=== PATIENT | male | born 1985 | race Caucasian/White ===

== ENCOUNTER 2018-05-23 13:28 | Observation (INO) ==
--- NOTE | 2018-05-23 14:46 | XR ---
EXAM DATE: 05/23/2018 1:51 PM EDT AGE/SEX: 33 years / Male INDICATIONS: . Chest pain. CLINICAL DATA: This is the patient's initial encounter. Patient reports that signs and symptoms have been present for 1 week and indicates a pain score of 0/10. MEDICAL/SURGICAL HISTORY: None. None. COMPARISON: No prior exams available for comparison. FINDINGS: PA and lateral views of the chest demonstrate the lungs to be symmetrically aerated without evidence of mass, infiltrate or effusion. The cardiomediastinal contours are unremarkable. Osseous structures are intact. CONCLUSION: No acute cardiopulmonary disease. Electronically signed by: Ashutosh Fournier MD 05/23/2018 2:45 PM EDT
--- NOTE | 2018-05-23 16:20 | ED ---
HPI General Chief Complaint: Arrhythmia / Palpitations Stated Complaint: Irregular heartbeat/chestpain Time Seen by Provider: 05/23/18 16:06 Source: patient Mode of arrival: ambulatory Limitations: no limitations History of Present Illness HPI narrative: The patient is a 33-year-old male who presents to the emergency department for palpitations with "skipped beats" and occasional chest discomfort. The patient states occasionally he will feel like his heart is skipping a beat, running slightly fast, and associated with substernal chest discomfort described as pressure. He states the pressure is light, nonradiating , and intermittent. The patient denies any associated shortness of breath, nausea, vomiting, or diaphoresis. The patient does have a history of hypertension and diabetes, however, states he was taken off those medications. The patient states his hypertension and diabetes started after he had surgery for diverticulitis. The patient is currently on no medications, denies any tobacco use, history of CAD, significant early family medical history of CAD, and previous LA. Symptoms are moderate. He denies any exertional shortness of breath. He denies any recent hospitalizations, travel, or surgery. The patient denies any history of pulmonary embolism or DVT. MD complaint: Reports "skipped beats" Onset (ago): day(s) Duration: intermittent Severity: moderate Context: Reports occurred during rest Associated symptoms: Reports chest pain Related Data Home Medications Medication Instructions Recorded Confirmed No Known Home Medications 05/23/18 05/23/18 Allergies Allergy/AdvReac Type Severity Reaction Status Date / Time No Known Allergies Allergy Unverified 05/23/18 16:16 Review of Systems ROS: all other systems reviewed are negative [facility] Medical History Medical History Diabetes (Acute) Hypertension (Acute) Surgical History Surgical History H/O abdominal surgery (Acute) Social History Social History Substance History: No History of Abuse Smoking Status: Never smoker How Often Do You Have a Drink Containing Alcohol: Never Recent Travel in [facility] within the Last 8 Weeks: No Recent Out of Country Travel within the Last 8 Weeks: No Exam Narrative Exam Narrative: GENERAL: Awake, alert, pleasant 33-year-old male who appears his stated age and is in no acute respiratory distress. SKIN: Focused skin assessment warm/dry. HEAD: Atraumatic. Normocephalic. EYES: Pupils equal and round. No scleral icterus. No injection or drainage. ENT: No nasal bleeding or discharge. Mucous membranes pink and moist. NECK: Trachea midline. No JVD. CARDIOVASCULAR: Regular, tachycardic with a heart rate of 110. RESPIRATORY: No accessory muscle use. Clear to auscultation. Breath sounds equal bilaterally. GASTROINTESTINAL: Abdomen soft, well-healed midline scar. No guarding or rigidity. MUSCULOSKELETAL: No obvious deformities. No clubbing. No cyanosis. No edema. NEUROLOGICAL: Awake and alert. No obvious cranial nerve deficits. Motor grossly within normal limits. Normal speech. PSYCHIATRIC: Appropriate mood and affect; insight and judgment normal. Course Initial Documented Vital Signs Temperature 98.8 F 05/23/18 13:32 Pulse Rate 110 H 05/23/18 13:32 Respiratory Rate 20 05/23/18 13:32 Blood Pressure 201/111 H 05/23/18 13:32 Pulse Oximetry 99 05/23/18 13:32 Last Documented Vital Signs Temperature 98.8 F 05/23/18 13:32 Pulse Rate 98 H 05/23/18 18:16 Respiratory Rate 16 05/23/18 18:16 Blood Pressure 171/88 H 05/23/18 18:16 Pulse Oximetry 100 05/23/18 18:16 Sign Out Sign Out Data: Patient Sign Out occurred on 05/23/18 at 17:52. Patient's care was discussed, and care was transferred from Leandro Hankins MD to Jaylon Vivas MD. Sign Out Comment: 33-year-old male with occasional skipped beat/ palpitation and mild chest discomfort. Initial troponin and d-dimer pending, patient slightly tachycardic. If d-dimer is positive, CTA. 2 sets of troponin and discharge home. If initial troponin is positive, admission. Last updated by Leandro Hankins MD at 05/23/18 16:51 Medical Decision Making MDM Narrative Medical decision making narrative: IV was established, labs are drawn and sent, and the patient was placed on cardiac telemetry monitoring and continuous pulse oximetry monitoring. EKG was ordered and interpreted. Chest x-ray was obtained. The patient was administered aspirin. D-dimer and TSH were sent to lab. The patient was signed out at 5 PM to the oncoming physician. The d-dimer is less than 0.5, very reassuring finding to exclude PE in this low risk patient. The patient has had PVCs here in the ER associated with chest tightness. At the time of first reassessment the patient experienced a PVC. This was captured on EKG and reviewed with the on-call equipment tech Dr. Maynard. In this scenario the finding is benign. The patient prefers to stay for chest pain center evaluation which is considered reasonable as he has no outpatient follow-up currently for primary care or cardiology. Given his history of diverticulitis with colostomy followed by reanastomosis hypertension hyperlipidemia coronary artery disease in his family and diabetes serial enzymes and nuclear medicine stress test considered reasonable or as considered appropriate by chest pain center providers. Patient is chest pain-free at approximately 6:30 PM as well as the time of the third reassessment at 7:45 PM. Please refer to Dr. Hankins's documentation for additional details. Medical Screen Exam Complete: Yes Emergency Medical Condition: Yes Differential Diagnosis Differential Diagnosis: Differential diagnosis includes acute coronary syndrome , arrhythmia, pulmonary embolism, electrolyte abnormality, dehydration, pericarditis, myocarditis, cardiomyopathy, valvular disorder. Lab Data Result diagrams: 05/23/18 16:25 05/23/18 16:25 Lab Results 05/23/18 05/23/18 05/23/18 Range/Units 16:25 16:25 16:25 WBC 11.7 H (4.0-11.0) th/mm3 RBC 5.27 (4.50-5.90) mil/mm3 Hgb 15.7 (13.0-17.0) gm/dL Hct 45.1 (39.0-51.0) % MCV 85.6 (80.0-100.0) fL MCH 29.9 (27.0-34.0) pg MCHC 34.9 (32.0-36.0) % RDW 13.0 (11.6-17.2) % Plt Count 175 (150-450) th/mm3 MPV 8.7 (7.0-11.0) fL Neut % (Auto) 80.4 H (16.0-70.0) % Lymph % (Auto) 13.9 (9.0-44.0) % [place] % (Auto) 4.5 (0.0-8.0) % Eos % (Auto) 0.7 (0.0-4.0) % Baso % (Auto) 0.5 (0.0-2.0) % Neut # (Auto) 9.4 H (1.8-7.7) th/mm3 Lymph # (Auto) 1.6 (1.0-4.8) th/mm3 [place] # (Auto) 0.5 (0.0-0.9) th/mm3 Eos # (Auto) 0.1 (0.0-0.4) th/mm3 Baso # (Auto) 0.1 (0.0-0.2) th/mm3 WBC Differential . Differential Comment Auto diff final D-Dimer Quant (PE/DVT) Less than 0.19 (0.00-0.50) mg/L FEU Sodium 136 (136-145) meq/L Potassium 4.0 (3.5-5.1) meq/L Chloride 100 (98-107) meq/L Carbon Dioxide 26.7 (21.0-32.0) meq/L Anion Gap 9 (5-15) meq/L BUN 12 (7-18) mg/dL Creatinine 0.87 (0.60-1.30) mg/dL Estimated GFR Greater than 89 (>89) mL/min POC Glucose (68-110) mg/dl Random Glucose 312 H (74-106) mg/dL Calcium 9.5 (8.5-10.1) mg/dL Magnesium (1.5-2.5) mg/dL Total Bilirubin 1.0 (0.2-1.0) mg/dL AST 11 L (15-37) U/L ALT 21 (12-78) U/L Alkaline Phosphatase 90 (45-117) U/L Troponin I Less than 0.02 L (0.02-0.05) ng/mL Total Protein 8.4 H (6.4-8.2) g/dL Albumin 4.2 (3.4-5.0) g/dL TSH (0.358-3.740) uIU/mL 05/23/18 05/23/18 05/23/18 Range/Units 16:25 18:50 19:05 WBC (4.0-11.0) th/mm3 RBC (4.50-5.90) mil/mm3 Hgb (13.0-17.0) gm/dL Hct (39.0-51.0) % MCV (80.0-100.0) fL MCH (27.0-34.0) pg MCHC (32.0-36.0) % RDW (11.6-17.2) % Plt Count (150-450) th/mm3 MPV (7.0-11.0) fL Neut % (Auto) (16.0-70.0) % Lymph % (Auto) (9.0-44.0) % [place] % (Auto) (0.0-8.0) % Eos % (Auto) (0.0-4.0) % Baso % (Auto) (0.0-2.0) % Neut # (Auto) (1.8-7.7) th/mm3 Lymph # (Auto) (1.0-4.8) th/mm3 [place] # (Auto) (0.0-0.9) th/mm3 Eos # (Auto) (0.0-0.4) th/mm3 Baso # (Auto) (0.0-0.2) th/mm3 WBC Differential Differential Comment D-Dimer Quant (PE/DVT) (0.00-0.50) mg/L FEU Sodium (136-145) meq/L Potassium (3.5-5.1) meq/L Chloride (98-107) meq/L Carbon Dioxide (21.0-32.0) meq/L Anion Gap (5-15) meq/L BUN (7-18) mg/dL Creatinine (0.60-1.30) mg/dL Estimated GFR (>89) mL/min POC Glucose 251 H (68-110) mg/dl Random Glucose (74-106) mg/dL Calcium (8.5-10.1) mg/dL Magnesium 2.0 (1.5-2.5) mg/dL Total Bilirubin (0.2-1.0) mg/dL AST (15-37) U/L ALT (12-78) U/L Alkaline Phosphatase (45-117) U/L Troponin I Less than 0.02 L (0.02-0.05) ng/mL Total Protein (6.4-8.2) g/dL Albumin (3.4-5.0) g/dL TSH 2.960 (0.358-3.740) uIU/mL Imaging Data Radiologist's impression: Chest X-Ray 05/23/18 13:51 CONCLUSION: No acute cardiopulmonary disease. Chest X-Ray 05/23/18 18:16 CONCLUSION: The lungs are clear. ECG Data EKG Prior to Arrival: No Attestation: I personally reviewed and interpreted this ECG as follows: Interpretation: EKG reveals sinus tachycardia with a heart rate of 110. Inverted T waves noted in lead V6. Discharge Plan Discharge Disposition Patient Disposition: 30 Still Patient Physicians Team ED Provider: Jaylon Vivas Primary Care Provider: Primary Care Mary Dominique Attending Provider: Jt Garza Discharge Interventions Interventions: Vital Signs Last Done: 05/23/18 13:32 Status ED Status: Admitted Observation Patient
[2018-05-23 16:53] LABS: Baso # (Auto) 0.1 th/mm3 (0.0-0.2); Baso % (Auto) 0.5 % (0.0-2.0); Eos # (Auto) 0.1 th/mm3 (0.0-0.4); Eos % (Auto) 0.7 % (0.0-4.0); Hematocrit 45.1 % (39.0-51.0); Hemoglobin 15.7 gm/dL (13.0-17.0); Lymph # (Auto) 1.6 th/mm3 (1.0-4.8); Lymph % (Auto) 13.9 % (9.0-44.0); Mean Corpuscular HGB Conc 34.9 % (32.0-36.0); Mean Corpuscular Hemoglobin 29.9 pg (27.0-34.0); Mean Corpuscular Volume 85.6 fL (80.0-100.0); Mean Platelet Volume 8.7 fL (7.0-11.0); Mono # (Auto) 0.5 th/mm3 (0.0-0.9); Mono % (Auto) 4.5 % (0.0-8.0); Neut # (Auto) 9.4 th/mm3 (1.8-7.7); Neut % (Auto) 80.4 % (16.0-70.0); Platelet Count 175 th/mm3 (150-450); Red Blood Count 5.27 mil/mm3 (4.50-5.90); White Blood Count 11.7 th/mm3 (4.0-11.0)
[2018-05-23] MEDS ORDERED: Sodium Chlor 0.9% Inj 500 ML IV.SIG SCH (17:00)
[2018-05-23 17:02] LABS: Albumin 4.2 g/dL (3.4-5.0); Anion Gap 9 meq/L (5-15); Aspartate Aminotransferase 11 U/L (15-37); Blood Urea Nitrogen 12 mg/dL (7-18); Calcium 9.5 mg/dL (8.5-10.1); Carbon Dioxide 26.7 meq/L (21.0-32.0); Chloride 100 meq/L (98-107); Glomerular Filtration Rate Greater Than 89 mL/min (>89); Glucose,Random 312 mg/dL (74-106); Sodium 136 meq/L (136-145)
[2018-05-23 17:03] LABS: Alanine Aminotransferase 21 U/L (12-78)
[2018-05-23 17:07] LABS: Alkaline Phosphatase 90 U/L (45-117); Total Protein 8.4 g/dL (6.4-8.2)
[2018-05-23 17:12] LABS: Thyroid Stimulating Hormone 2.96 uIU/mL (0.358-3.740)
[2018-05-23] MEDS ORDERED: Metoprolol Tartrate 25 MG Tablet PO ONE (18:15)
--- NOTE | 2018-05-23 18:43 | XR ---
EXAM DATE: 05/23/2018 6:16 PM EDT AGE/SEX: 33 years / Male INDICATIONS: Chest pain and palpitations. CLINICAL DATA: This is the patient's initial encounter. Patient reports that signs and symptoms have been present for 1 week and indicates a pain score of 2/10. MEDICAL/SURGICAL HISTORY: None. None. COMPARISON: [facility], CHEST 2V PA&LAT, 05/23/2018. . FINDINGS: A single AP view of the chest demonstrates the lungs to be symmetrically aerated without evidence of mass, infiltrate or effusion. The cardiomediastinal contours are unremarkable. Osseous structures a re intact. CONCLUSION: The lungs are clear. Electronically signed by: Saúl Rosales MD 05/23/2018 6:41 PM EDT
[2018-05-23] MEDS ORDERED: amLODIPine 5 MG Tablet PO ONE (22:15)
[2018-05-23 22:59] LABS: Creatine Kinase 37 U/L (39-308)
[2018-05-24 03:00] LABS: Baso # (Auto) 0.1 th/mm3 (0.0-0.2); Baso % (Auto) 0.7 % (0.0-2.0); Eos # (Auto) 0.2 th/mm3 (0.0-0.4); Eos % (Auto) 1.7 % (0.0-4.0); Hematocrit 42.8 % (39.0-51.0); Hemoglobin 15.3 gm/dL (13.0-17.0); Lymph # (Auto) 2.4 th/mm3 (1.0-4.8); Lymph % (Auto) 26.2 % (9.0-44.0); Mean Corpuscular HGB Conc 35.7 % (32.0-36.0); Mean Corpuscular Hemoglobin 30.5 pg (27.0-34.0); Mean Corpuscular Volume 85.3 fL (80.0-100.0); Mean Platelet Volume 9.1 fL (7.0-11.0); Mono # (Auto) 0.6 th/mm3 (0.0-0.9); Mono % (Auto) 7.2 % (0.0-8.0); Neut # (Auto) 5.8 th/mm3 (1.8-7.7); Neut % (Auto) 64.2 % (16.0-70.0); Platelet Count 165 th/mm3 (150-450); Red Blood Count 5.01 mil/mm3 (4.50-5.90); Red Cell Distribution Width 12.8 % (11.6-17.2)
[2018-05-24 03:19] LABS: Alanine Aminotransferase 20 U/L (12-78); Albumin 3.8 g/dL (3.4-5.0); Alkaline Phosphatase 81 U/L (45-117); Anion Gap 8 meq/L (5-15); Aspartate Aminotransferase 10 U/L (15-37); Blood Urea Nitrogen 11 mg/dL (7-18); Calcium 8.7 mg/dL (8.5-10.1); Chloride 104 meq/L (98-107); Glomerular Filtration Rate Greater Than 89 mL/min (>89); Glucose,Random 220 mg/dL (74-106); Potassium 3.5 meq/L (3.5-5.1); Sodium 141 meq/L (136-145); Total Protein 7.5 g/dL (6.4-8.2)
[2018-05-24] MEDS ORDERED: amLODIPine 5 MG Tablet PO ONE (07:00)
--- NOTE | 2018-05-24 07:49 | P.HPCA ---
History of Present Illness Primary Care Physician: No Primary Care Physician Chief Complaint: Chest discomfort History of Present Illness: 33 year old male with history of type II diabetes and diverticulosis presents to ER for further evaluation of skipped beats described as a "thump." Onset one week. Location substernal. No chest pain. Reports "thump" is uncomfortable. No radiation. Occurs few times an hour the past week. No precipitating or relieving factors. No recent fever, illness, chills, or injury. No new medications, changes in diet, or stress levels. Took an OTC sleeping pill last week which would he normal does not take. Denies similar discomfort in the past. Known type 2 diabetes, diagnosed 10 years ago. Lost 100 pounds and subsequently anti-hyperglycemics were discontinued. Currently does not have a PCP. Past cardiac testing None Social history Known type 2 diabetes, diagnosed 10 years ago. Lost 100 pounds and subsequently anti-hyperglycemics were discontinued. No known hypertension or hyperlipidemia. Lifelong non-smoker. No alcohol or recreational drug use. Currently unemployed. Endorses an active lifestyle, walking daily. Family history Noncontributory for early onset cardiovascular disease - Diagnosis (1) Atypical chest pain (2) Elevated random blood glucose level (3) Hypertension Review of Systems All other systems reviewed negative except as stated in HPI [facility] - History History Provided By: Patient - Medical History Medical History: Medical History (Last Updated 05/24/18 @ 11:27 by HANK Merida) Diabetes Diverticulosis Obesity (BMI 30-39.9) - Surgical History Surgical History: Surgical History (Last Updated 05/24/18 @ 11:27 by HANK Merida) H/O abdominal surgery - Social History I have reviewed the patient's Social History: Yes - Tobacco History Second Hand Smoke Exposure: Yes (Both parents are heavy smokers - lives with) Tobacco Use In Past 30 Days: No Smoking Status: Never smoker - Alcohol History How Often Do You Have a Drink Containing Alcohol: Never - Substance Use History Substance History: No History of Abuse - Travel History History of Recent Travel: No Recent Travel in the [place] Within the Last 8 Weeks: No Recent Travel Out of the Country Within the Last 8 Weeks: No - Immunization History Tetanus Immunization: >5 Years Medications and Allergies Active Medications: Active Medications Sodium Chloride (Ns Inj) 500 mls @ 0 mls/hr IV.SIG BOLUS VICENTE Last Infusion: 05/23/18 17:18 Dose: Infused Sodium Chloride (Ns Flush) 2 ml IV.FLUSH UNSCH PRN PRN Reason: FLUSH AFTER USING IV ACCESS Allergies Allergy/AdvReac Type Severity Reaction Status Date / Time No Known Allergies Allergy Unverified 05/23/18 16:16 Home Medications Medication Instructions Recorded Confirmed Type No Known Home Medications 05/23/18 05/23/18 History Exam Vital signs: Vital Signs 05/23/18 13:32 05/23/18 16:19 05/23/18 16:32 Temperature 98.8 F Pulse Rate 110 H 110 H 102 H Respiratory Rate 20 18 14 Blood Pressure 201/111 H 202/99 H 179/110 H Pulse Oximetry 99 99 99 05/23/18 18:16 05/23/18 20:31 05/23/18 20:50 Temperature 99 F Pulse Rate 98 H 91 H 89 Respiratory Rate 16 17 17 Blood Pressure 171/88 H 171/90 H 170/99 H Pulse Oximetry 98 96 96 05/23/18 21:15 05/24/18 00:00 05/24/18 03:46 Temperature 98.3 F 98.2 F Pulse Rate 93 H 82 Respiratory Rate 16 17 Blood Pressure 164/88 H 170/106 H Pulse Oximetry 98 97 97 05/24/18 04:33 Temperature Pulse Rate 79 Respiratory Rate Blood Pressure Pulse Oximetry Intake & Output 05/23/18 05/24/18 05/24/18 18:59 06:59 18:59 Intake Total 500 / 500 Balance 500 / 500 Weight 111.13 kg 111.13 kg Intake: IV 500 / 500 NS Inj 500 ML @ Wide Open IV. 500 / 500 SIG BOLUS VICENTE Rx#:[id number] Other: Weight On Admission 111.13 kg Narrative: GENERAL: Alert WN, WD, NAD, pleasant, obese, male HEAD: NC, AT EYES: Sclera clear, conjunctiva without injection, pupils equal and round ENT: Mucous membranes pink and moist, poor dentition CV: RRR, without murmur, rub, gallop, no JVD, S1-S2. Chest wall nontender with palpation. RESP: Clear lungs throughout bilateral, no crackles, wheeze, rhonchi, symmetrical chest rise, nonlabored, able to speak in full sentences ABD: Soft, NT, ND, no masses, positive bowel tones EXT: Pulses +2x4, no dependent edema MS: Normal tone x4 extremities, nontender, no obvious deformities, full range of motion NEURO: CN II through CN XII grossly intact, motor strength 5/5, gait WNL PSYCH: A+O x3, pleasant affect, appropriate speech, mood, insight and judgment SKIN: Normal turgor, normal texture, no lesions, no rashes, brisk cap refill, even hair distribution Results 05/24/18 02:22 05/24/18 02:22 Cardiac Enzymes 05/23/18 05/23/18 05/23/18 Range/Units 16:25 18:50 22:00 AST 11 L (15-37) U/L Troponin I Less than 0.02 L Less than 0.02 L Less than 0.02 L (0.02-0.05) ng/mL 05/24/18 Range/Units 02:22 AST 10 L (15-37) U/L Troponin I Less than 0.02 L (0.02-0.05) ng/mL CBC 05/23/18 05/24/18 Range/Units 16:25 02:22 WBC 11.7 H 9.0 (4.0-11.0) th/mm3 RBC 5.27 5.01 (4.50-5.90) mil/mm3 Hgb 15.7 15.3 (13.0-17.0) gm/dL Hct 45.1 42.8 (39.0-51.0) % Plt Count 175 165 (150-450) th/mm3 Neut # (Auto) 9.4 H 5.8 (1.8-7.7) th/mm3 Lymph # (Auto) 1.6 2.4 (1.0-4.8) th/mm3 [place] # (Auto) 0.5 0.6 (0.0-0.9) th/mm3 Eos # (Auto) 0.1 0.2 (0.0-0.4) th/mm3 Baso # (Auto) 0.1 0.1 (0.0-0.2) th/mm3 Comprehensive Metabolic Panel 05/23/18 05/24/18 Range/Units 16:25 02:22 Sodium 136 141 (136-145) meq/L Potassium 4.0 3.5 (3.5-5.1) meq/L Chloride 100 104 (98-107) meq/L Carbon Dioxide 26.7 29.0 (21.0-32.0) meq/L BUN 12 11 (7-18) mg/dL Creatinine 0.87 0.68 (0.60-1.30) mg/dL Calcium 9.5 8.7 D (8.5-10.1) mg/dL AST 11 L 10 L (15-37) U/L ALT 21 20 (12-78) U/L Alkaline Phosphatase 90 81 (45-117) U/L Total Protein 8.4 H 7.5 D (6.4-8.2) g/dL Albumin 4.2 3.8 (3.4-5.0) g/dL Intake and Output 05/23/18 05/24/18 05/24/18 22:59 06:59 14:59 Intake Total 500 / 500 Balance 500 / 500 Intake: IV 500 / 500 NS Inj 500 ML @ Wide Open IV. 500 / 500 SIG BOLUS [facility] Rx#:[id number] Other: Weight 111.13 kg Weight On Admission 111.13 kg - Imaging and Cardiology Imaging: Impressions Chest X-Ray 05/23/18 13:51 CONCLUSION: No acute cardiopulmonary disease. Chest X-Ray 05/23/18 18:16 CONCLUSION: The lungs are clear. EKG interpretations - EKG EKG results cardiology: sinus rhythm, normal axis (NSR, nonspecific t wave changes) Caprini VTE Risk Assessment Caprini VTE Risk Assessment: No/Low Risk (score <= 1) Caprini Risk Assessment Model: Point Value = 1 Point Value = 2 Point Value = 3 Point Value = 5 Age 41-60 Minor surgery BMI > 25 kg/m2 Swollen legs Varicose veins or History of unexplained or recurrent spontaneous Oral contraceptives or hormone replacement Sepsis (< 1 month) Serious lung disease, including pneumonia (< 1 month) Abnormal pulmonary function Acute myocardial infarction Congestive heart failure (< 1 month) History of inflammatory bowel disease Medical patient at bed rest Age 61-74 Arthroscopic surgery Major open surgery (> 45 min) Laparoscopic surgery (> 45 min) Malignancy Confined to bed (> 72 hours) Immobilizing plaster cast Central venous access Age >= 75 History of VTE Family history of VTE Factor V Leiden Prothrombin [id number] Lupus anticoagulant Anticardiolipin antibodies Elevated serum homocysteine Heparin-induced thrombocytopenia Other congenital or acquired thrombophilia Stroke (< 1 month) Elective arthroplasty Hip, pelvis, or leg fracture Acute spinal cord injury (< 1 month) Prophylaxis Regimen: Total Risk Factor Score Risk Level Prophylaxis Regimen 0-1 Low Early ambulation 2 Moderate Order ONE of the following: *Sequential Compression Device (SCD) *Heparin 5000 units SQ BID 3-4 Higher Order ONE of the following medications: *Heparin 5000 units SQ TID *Enoxaparin/Lovenox 40 mg SQ daily (WT < 150 kg, CrCl > 30 mL/min) *Enoxaparin/Lovenox 30 mg SQ daily (WT < 150 kg, CrCl > 10-29 mL/min) *Enoxaparin/Lovenox 30 mg SQ BID (WT < 150 kg, CrCl > 30 mL/min) AND/OR *Sequential Compression Device (SCD) 5 or more Highest Order ONE of the following medications: *Heparin 5000 units SQ TID (Preferred with Epidurals) *Enoxaparin/Lovenox 40 mg SQ daily (WT < 150 kg, CrCl > 30 mL/min) *Enoxaparin/Lovenox 30 mg SQ daily (WT < 150 kg, CrCl > 10-29 mL/min) *Enoxaparin/Lovenox 30 mg SQ BID (WT < 150 kg, CrCl > 30 mL/min) AND *Sequential Compression Device (SCD) Assessment and Plan - Assessment (1) Atypical chest pain Code(s): R07.89 - Other chest pain Status: Acute Plan: Admitted to chest pain center. ACS ruled out with 3 sets of EKGs and cardiac enzymes. Monitor on telemetry overnight. Telemetry reviewed. Seen and evaluated by Dr. Marzena Brown. Proceed with exercise cardiac testing. If unremarkable, plans are to discharge home with follow-up with a primary care provider. Discussed local primary care clinics and information will be provided upon discharge. Verbalized understanding and agreeable to plan of care. (2) Elevated random blood glucose level Code(s): R73.09 - Other abnormal glucose Status: Acute Plan: Made aware random glucose 251 and 220. Add hemoglobin A1c. Strongly encouraged him to establish with a primary care provider for further evaluation and monitoring. Metformin 500 mg twice daily will be provided upon discharge. (3) Hypertension Code(s): I10 - Essential (primary) hypertension Status: Acute Plan: Continue to monitor. Lisinopril 10 mg p.o. x1 dose now. Prescription will also be provided upon discharge. Encouraged weight loss, increasing daily activity, dietary modifications, and following a low-sodium diet of no more than 2000 mg daily. H&P: Quality - VTE Deep Vein Thrombosis/Pulmonary Embolism Present on Admission: No (3) Hypertension Qualifiers: Hypertension type: unspecified Qualified Code(s): I10 - Essential (primary) hypertension
[2018-05-24] MEDS ORDERED: Lisinopril 10 MG Tablet PO ONE (09:46)
[2018-05-24] MEDS ORDERED: Dextrose 50% in Water 50 ML Vial IV.PUSH PRN (11:32)
[2018-05-24] MEDS ORDERED: Insulin NovoLOG Aspart Correctional Sugar Inj SQ SCH (12:00)
[2018-05-24 12:01] VITALS: BP 168/102; PULSE 104; RESP 16; TEMP 98.1; O2SAT 98
--- NOTE | 2018-05-24 15:57 | NM ---
EXAM DATE: 05/24/2018 12:39 PM EDT AGE/SEX: 33 years / Male INDICATIONS: Angina. . Chest pain and palpitations. CLINICAL DATA: This is the patient's initial encounter. Patient reports that signs and symptoms have been present for 1 day and indicates a pain score of 4/10. MEDICAL/SURGICAL HISTORY: Hypertension. Diabetes mellitus type II. None. COMPARISON: No prior exams available for comparison. DOSE: 11 mCi Tc 99m Myoview at rest 35 mCi [id number] at stress REST HEART RATE: 142 BPM TARGET HEART RATE: 160 BPM MAX HEART RATE: 165 BPM REST BLOOD PRESSURE: 170/88 mmHg MAX BLOOD PRESSURE: 210/88 mmHg EJECTION FRACTION: 61 % TECHNIQUE: The patient underwent upright treadmill exercise in the chest pain center. Continuous EC G tracing was monitored during stress. Gated SPECT imaging was performed after stress, and conventio nal SPECT imaging was performed at rest. The examination was performed on a SPECT/CT scanner, both a ttenuation-corrected and non-corrected datasets were reviewed. FINDINGS: Distribution: The maximum perfused segment at stress is in the septal wall. Perfusion: The pattern of perfusion at stress is within normal limits. Gated Study: There are intact wall motion and wall thickening without hypokinetic or dyskinetic segme nts. The ejection fraction is calculated at 61%. RISK CATEGORY: Low (<1% Annual Motality Rate) CONCLUSION: 1. Unremarkable myocardial perfusion study. Electronically signed by: Raghavendra Dee MD 05/24/2018 3:56 PM EDT
[2018-05-24 18:52] LABS: Hemoglobin A1c 9.7 % (4.3-6.0)
--- NOTE | 2018-05-25 06:54 | ECG ---
Date Performed: 05/23/2018 Time Performed: 22:05:45 PTAGE: 33 years EKG: Sinus rhythm NONSPECIFIC T-WAVE ABNORMALITY BORDERLINE ECG Since PREVIOUS TRACING , no significant change noted PREVIOUS TRACIN05/23/2018 18.50 DOCTOR: Marzena Brown Interpretating Date/Time 05/25/2018 06:53:49
--- NOTE | 2018-05-25 06:54 | ECG ---
Date Performed: 05/23/2018 Time Performed: 18:50:14 PTAGE: 33 years EKG: Sinus rhythm NONSPECIFIC T-WAVE ABNORMALITY BORDERLINE ECG Since PREVIOUS TRACING , no significant change noted PREVIOUS TRACIN05/23/2018 13.57 DOCTOR: Marzena Brown Interpretating Date/Time 05/25/2018 06:53:36
--- NOTE | 2018-05-25 06:54 | ECG ---
Date Performed: 05/23/2018 Time Performed: 13:57:09 PTAGE: 33 years EKG: SINUS TACHYCARDIA NONSPECIFIC ST & T-WAVE ABNORMALITY ABNORMAL ECG NO PREVIOUS TRACING DOCTOR: Marzena Brown Interpretating Date/Time 05/25/2018 06:53:24
--- NOTE | 2018-05-25 06:54 | TR ---
Date Performed: 05/24/2018 Time Performed: 14:01:45 DOCTOR: Marzena Brown DRUG LIST: CLINICAL HISTORY: REASON FOR TEST: REASON FOR ENDING: OBSERVATION: CONCLUSION: Ivan protocol completed. Stopped sec to reaching target heart rate and leg fatigue. Maximum YV=592 Max HR Achieved=88.0% Resting FZ=588/88 Total Exercise Time=6:01. No reprod chest dis comfort. Infrequent PVCs. Baseline diffuse t wave inversion, unchanged during exam. No st segment elise nge. Fair exercise tolerance. Hypertensive blood pressure response. Recovery quick and unremarkable. Nuclear images pending. Nondiagnositc ST changes throughout. COMMENTS: Nondiagnostic ST changes throughout.
--- NOTE | 2018-05-25 07:02 | TR ---
Date Performed: 05/24/2018 Time Performed: 09:24:53 DOCTOR: Marzena Brown DRUG LIST: CLINICAL HISTORY: REASON FOR TEST: REASON FOR ENDING: OBSERVATION: CONCLUSION: Ivan protocol completed. Stopped sec to exceeding target heart rate and leg fatigue . Maximum OG=611 Max HR Achieved=95.0% Maximum WC=161/94 Total Exercise Time=7:03. No reprod chest d iscomfort. Infrequent PVC. Baseline t wave inversions, unchanged during exam. No st segment change. F air exercise tolerance. Hypertensive response. Recovery quick and unremarkable. Nondiagnostic ST elise nge throughout. COMMENTS: Nondiaganositic ST changes
== END 2018-05-24 16:36 | disposition home or self-care (01) ==
LOC: NEPD 13:28 → NEDA 13:28 → NEPGCP 20:25
PROVIDERS: ADMIT Internal Medicine Cardiovascular Disease; ATTEND Internal Medicine Cardiovascular Disease